=== PATIENT | female | born 1975 | race African-American/Black ===

== ENCOUNTER 2017-01-26 18:19 | Emergency (ER) | payer MEDICAID ==
[2017-01-26 18:30] VITALS: BP 123/76; BMI 30.8
--- NOTE | 2017-01-26 20:16 | DR.GENAD ---
HPI - PCP Primary Care Physician: NFD - Complaint/Symptoms Chief Complaint Doctors Comments: Patient states that she has carpal tunnel syndrome for years and has been taking ibuprofen and it has not helped. She was playing with her nephew today and fell against the sofa (arm) there was no pillow. She now has pain on her left upper back (scapula) Chief Complaint:: Right hand and back pain - Source History Provided: Patient - Mode of Arrival Mode of Arrival: Ambulatory - Timing Onset of Chief Complaint: 01/12/17 PMH - PMH Past Medical History: Yes Past Medical History: Anemia, Anxiety, Asthma Past Surgical History: Yes Surgical History: [employer] Surgery Past Surgical History Comment: Tubal ligation. Hernia. Eye surgery (stye) both eyes - Family History History of Family Medical Conditions: Yes Family Medical History: Cancer, Hypertension - Social History Does any household member use tobacco: No Alcohol Use: None Do you use any recreational Drugs:: No Lives With: Alone Lives Where: Home - infectious screening In the last 2 months have you had wt loss of >10#?: NO Have you had fever, night sweats or hemotysis?: No Have you traveled outside the country in the last 6 months?: No Isolation: Standard ROS - Review of Systems Constitutional: No Symptoms Reported Eyes: No Symptoms Reported ENTM: No Symptoms Reported Respiratoy: No Symptoms Reported Cardiovascular: No Symptoms Reported Gastrointestinal/Abdominal: No Symptoms Reported Genitourinary: No Symptoms Reported Neurological: No Symptoms Reported Musculoskeletal: Back (scapula), Wrist (pain for years) Integumentary: No Symptoms Reported Hematologic/Lymphatic: No Symptoms Reported Endocrine: No Symptoms Reported Psychiatric: No Symptoms Reported All Other Systems: Reviewed and Negative PE - Vital Signs Vitals: Temperature 99.4 F Pulse Rate 106 Respiratory Rate 20 Blood Pressure 123/76 O2 Sat by Pulse Oximetry 95 - General Limitations: No Limitations General Appearance: Alert - Head Head Exam: Normal Inspection - Eyes Eye exam: Normal Appearance, PERRL, EOMI - ENT ENT Exam: Normal Exam External Ear Exam: Normal External Inspection TM/Canal Exam: Bilateral Normal Nose Exam: Normal Nose Exam Mouth Exam: Normal Inspection Throat Exam: Normal Inspection - Neck Neck Exam: Normal Inspection - Chest Chest Inspection: Normal Inspection - Respiratory Respiratory Exam: Normal Lung Sounds Bilat Respiratory Exam: Bilateral Clear to Auscultation - Cardiovascular Cardiovascular Exam: Regular Rate, Normal Rhythm - Abdominal Exam Abdominal Exam: Normal Inspection Abdominal Tenderness: negative: RUQ, RLQ, LUQ, LLQ, Epigastrium, Suprapubic, Diffuse, Mild, Moderate, Severe, Other - Extremities Extremities Exam: Normal Inspection - Back Back Exam: Normal Inspection, Tenderness (right upper scapula) - Neurologic Neurological Exam: Alert, Oriented X3, CN II-XII Intact - Psychiatric Psychiatric Exam: Normal Affect, Normal Mood - Skin Skin Exam: Warm, Dry, Intact ROR - XRAY XRAY Interpreted by: Radiologist (Scapula: No malalignment, fracture, or worrisome focal lesion of the scapula is identified. 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
--- NOTE | 2017-01-26 21:00 | RAD ---
Two-view right scapula series: Indication: Right scapular pain status post fall. Comparison: None available. Findings/impression: No malalignment, fracture, or worrisome focal lesion of the scapula is identifi ed. 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 Reported By:
== END 2017-01-26 21:15 | disposition home or self-care (01) ==
LOC: ER 18:34
DX: M19.019 Primary osteoarthritis, unspecified shoulder (principal)
CPT/HCPCS: 73010; 99282